=== PATIENT | female | born 1995 | race Caucasian/White ===

== ENCOUNTER 2018-04-19 16:06 | Emergency (ER) | payer OTHER ==
[2018-04-19 16:14] VITALS: BP 122/80
--- NOTE | 2018-04-19 16:47 | EDPHY ---
H & P Stated Complaint: thurs etoh fell hit head on tub/ ?loc continued bravo/vomited x 1 sat Time Seen by Provider: 04/19/18 16:27 HPI/ROS: CHIEF COMPLAINT: Headache, concussion HISTORY OF PRESENT ILLNESS: The patient is a 22-year-old female who was drinking and sitting on the edge of a bath tub when she fell backwards and hit her head on the wall. This happened 5 days ago. She continues to have a mild headache and some mild difficulty with her balance. No nausea. She did vomit the next day but has not since. No vision changes. No hearing changes. No neck pain. No focal weakness or deficits. No bowel or bladder abnormalities. Severity: Mild Modifying factors: None REVIEW OF SYSTEMS: Constitutional: denies: chills, fever, recent illness, recent injury EENTM: denies: blurred vision, double vision, nose congestion Respiratory: denies: cough, shortness of breath Cardiac: denies: chest pain, irregular heart rate, lightheadedness, palpitations Gastrointestinal/Abdominal: denies: abdominal pain, diarrhea, nausea, vomiting, blood streaked stools Genitourinary: denies: dysuria, frequency, hematuria, pain Musculoskeletal: See HPI Skin: denies: lesions, rash, jaundice, bruising Neurological: See HPI denies: numbness, paresthesia, tingling, dizziness, weakness Hematologic/Lymphatic: denies: blood clots, easy bleeding, easy bruising Immunologic/allergic: denies: HIV/AIDS, transplant 10 systems reviewed and negative except as noted EXAM: GENERAL: Well-appearing, well-nourished and in no acute distress. HEAD: Atraumatic, normocephalic. No hematomas or abrasions or lacerations EYES: Pupils equal round and reactive to light, extraocular movements intact, sclera anicteric, conjunctiva are normal. ENT: TMs normal, nares patent, oropharynx clear without exudates. Moist mucous membranes. NECK: Normal range of motion, supple without lymphadenopathy or JVD. No bony tenderness. LUNGS: Breath sounds clear to auscultation bilaterally and equal. No wheezes rales or rhonchi. HEART: Regular rate and rhythm without murmurs, rubs or gallops. ABDOMEN: Soft, nontender, normoactive bowel sounds. No guarding, no rebound. No masses appreciated. BACK: No CVA tenderness, no spinal tenderness, step-offs or deformities EXTREMITIES: Normal range of motion, no pitting or edema. No clubbing or cyanosis. NEUROLOGICAL: Cranial nerves II through XII grossly intact. Normal speech, normal gait. 5/5 strength, normal movement in all extremities, normal sensation , normal reflexes, normal heel to toe ambulation PSYCH: Normal mood, normal affect. SKIN: Warm, dry, normal turgor, no visible rashes or lesions. Source: Patient - Personal History LMP (Females 10-55): 15-21 Days Ago Current Tetanus Diphtheria and Acellular Pertussis (TDAP): Yes - Medical/Surgical History Hx Asthma: No Hx Chronic Respiratory Disease: No Hx Diabetes: No Hx Cardiac Disease: No Hx Renal Disease: No Hx Cirrhosis: No Hx Alcoholism: No Hx HIV/AIDS: No Hx Splenectomy or Spleen Trauma: No Other PMH: denies - Family History Significant Family History: No pertinent family hx - Social History Smoking Status: Never smoked Alcohol Use: None Constitutional: Initial Vital Signs Temperature (C) 37.2 C 04/19/18 16:10 Heart Rate 98 04/19/18 16:10 Respiratory Rate 17 04/19/18 16:10 Blood Pressure 122/80 H 04/19/18 16:10 O2 Sat (%) 98 04/19/18 16:10 O2 Delivery Mode Room Air Allergies/Adverse Reactions: amoxicillin Allergy (Verified 04/19/18 16:10) Home Medications: Medication Instructions Recorded Doxycycline Calcium 04/19/18 Medical Decision Making ED Course/Re-evaluation: Patient came here to get a CT scan. We discussed the risks and benefits. The chances of her having a clinically meaningful intracranial hemorrhage or fracture are very remote since it is been 5 days from her injury and her symptoms are improving. Also spoke with her mom about this over the phone. We gave strict concussion precautions. Mom agrees with not performing CT scan at this point. Differential Diagnosis: Partial list of the Differential diagnosis considered include but were not limited to; concussion, contusion and although unlikely based on the history and physical exam, I also considered intracranial injury, neck injury. Departure - Departure Disposition: Home, Routine, Self-Care Clinical Impression: Concussion Qualifiers: Encounter type: initial encounter Loss of consciousness presence/duration: without LOC Qualified Code(s): S06.0X0A - Concussion without loss of consciousness, initial encounter Condition: Fair Instructions: Concussion (ED) Referrals: NONE *PRIMARY CARE P,. [Unknown] - As per Instructions [facility] [Clinic] - As per Instructions Vijaya Diez MD [Medical Doctor] - 5-7 days, if not improved Stand Alone Forms: School Excuse
== END 2018-04-19 17:05 | disposition home or self-care (01) ==
DX: S06.0X0A Concussion without loss of consciousness, initial encounter (principal); W18.2XXA Fall in (into) shower or empty bathtub, initial encounter; Y92.9 Unspecified place or not applicable; Y99.9 Unspecified external cause status; Y93.9 Activity, unspecified